=== PATIENT | female | born 1935 | race Caucasian/White ===

== ENCOUNTER → 2016-09-10 | Outpatient (CLI) | payer OTHER, MEDICARE | LOC: BMCIMAGING 08:55 | PROVIDERS: ATTEND Orthopaedic Surgery | DX: Z09 Encounter for follow-up examination after completed treatment for conditions other than malignant neoplasm (principal); Z96.641 Presence of right artificial hip joint ==

== ENCOUNTER → 2016-11-05 | Outpatient (CLI) | payer OTHER, MEDICARE | LOC: BMCIMAGING 16:28 | PROVIDERS: ATTEND Internal Medicine | DX: J18.1 Lobar pneumonia, unspecified organism (principal) ==

== ENCOUNTER → 2016-11-19 | Outpatient (CLI) | payer OTHER, MEDICARE | LOC: BMCIMAGING 15:34 | PROVIDERS: ATTEND Internal Medicine | DX: R91.8 Other nonspecific abnormal finding of lung field (principal) | CPT/HCPCS: G0463-PO ==

== ENCOUNTER → 2017-02-15 | Outpatient (CLI) | payer OTHER, MEDICARE | LOC: BMCIMAGING 09:47 | PROVIDERS: ATTEND Orthopaedic Surgery | DX: Z47.1 Aftercare following joint replacement surgery (principal); Z96.641 Presence of right artificial hip joint ==

== ENCOUNTER → 2017-06-29 | Outpatient (CLI) | payer OTHER, MEDICARE | LOC: BMCIMAGING 14:36 | PROVIDERS: ATTEND Internal Medicine | DX: G50.0 Trigeminal neuralgia (principal) ==

== ENCOUNTER → 2017-09-20 | Outpatient (CLI) | payer OTHER, MEDICARE | LOC: BMCIMAGING 14:03 | PROVIDERS: ATTEND Internal Medicine Rheumatology | DX: Z13.820 Encounter for screening for osteoporosis (principal); M81.0 Age-related osteoporosis without current pathological fracture ==

== ENCOUNTER 2017-12-14 12:26 | Inpatient (IN) | payer OTHER, MEDICARE ==
[2017-12-14] MEDS ORDERED: NS 1,000 ML IV ONE ×2 (13:17→13:42)
--- NOTE | 2017-12-14 13:24 | EDPHY ---
HPI/HX/ROS/PE/MDM Narrative: CHIEF COMPLAINT: Facial pain HPI: This patient is an 82 year old female with recent diagnosis of trigeminal neuralgia. She arrives at the request of her primary care provider, Dr. Heredia, for management of severe right facial pain. This has been intermittent for several months. Last week, the pain became persistent and has worsened considerable over the last 48 hours. Her pain is uncontrolled at home with hydrocodone and Carbamazepine. She has found it difficult to eat or drink due to discomfort. She denies fever or visual changes. She has had a dental workup which was negative. She has not had any imaging studies to date. No chest pain, shortness of breath, abdominal pain, or other associated symptoms. REVIEW OF SYSTEMS: Aside from elements discussed in the HPI, a comprehensive 10-point review of systems was reviewed and is negative. PMH: Polymyositis. Tonsillectomy. Osteoporosis. Fibromyalgia. Hyperlipidemia. Migraines. Right hip surgery. SOCIAL HISTORY: Friend at bedside. Retired. Lives in [place]. PHYSICAL EXAM: General:Patient is alert, in no acute distress. ENT:Eyes are normal to inspection. Severe pain in right mandibular region, patient is holding her face and finds it difficult to speak. Neck: Normal inspection. Full range of motion. Respiratory:No respiratory distress. Breath sounds normal bilaterally. Cardiovascular: Regular rate and rhythm. Strong peripheral pulses. Normal cap refill. Abdomen:The abdomen is nontender to palpation. There are no peritoneal signs. There are normal bowel sounds. Back: Normal to inspection. No tenderness to palpation. Skin: Normal color. No rash. Warm and dry. Extremities: Normal appearance. Full range of motion. Neuro: Oriented x3. Normal motor function. Normal sensory function. ED Course: 82 y/o female presents with uncontrolled pain due to right-sided trigeminal neuralgia. Plan to admit for pain management. The patient's primary care provider concurs with this plan. Plan for labs including CBC, chemistries, troponin, ESR. Plan to administer 0.5mg IV Dilaudid and 1L IV NS for symptom relief. Plan for maxillofacial CT. Reviewed laboratory studies. Evidence of dehydration, hyponatremia. 13:50 Spoke with hospitalist service. Dr. Kaur accepts admission for trigeminal neuralgia, dehydration, hyponatremia. Plan to administer an additional 1L IVF. 14:[address] Gallegos, radiologist. CT maxillofacial bones is negative for acute processes. - Data Points Imaging: Discussed imaging studies w/ call worker Radiologist Laboratory Results: Laboratory Results 12/14/17 13:25 18 13:25 12/14/1718 12/14/17 13:45 13:25 13:25 WBC 7.52 10^3/uL 10^3/uL (3.80-9.50) RBC 4.37 10^6/uL 10^6/uL (4.18-5.33) Hgb 13.4 g/dL g/dL (12.6-16.3) Hct 38.5 % % (38.0-47.0) MCV 88.1 fL fL (81.5-99.8) MCH 30.7 pg pg (27.9-34.1) MCHC 34.8 g/dL g/dL (32.4-36.7) RDW 13.3 % % (11.5-15.2) Plt Count 319 10^3/uL 10^3/uL (150-400) MPV 8.6 fL L fL (8.7-11.7) Neut % (Auto) 66.7 % % (39.3-74.2) Lymph % (Auto) 25.1 % % (15.0-45.0) [place] % (Auto) 6.1 % % (4.5-13.0) Eos % (Auto) 1.3 % % (0.6-7.6) Baso % (Auto) 0.4 % % (0.3-1.7) Nucleat RBC Rel Count 0.0 % % (0.0-0.2) Absolute Neuts (auto) 5.01 10^3/uL 10^3/uL (1.70-6.50) Absolute Lymphs (auto) 1.89 10^3/uL 10^3/uL (1.00-3.00) Absolute Monos (auto) 0.46 10^3/uL 10^3/uL (0.30-0.80) Absolute Eos (auto) 0.10 10^3/uL 10^3/uL (0.03-0.40) Absolute Basos (auto) 0.03 10^3/uL 10^3/uL (0.02-0.10) Absolute Nucleated RBC 0.00 10^3/uL 10^3/uL (0-0.01) Immature Gran % 0.4 % % (0.0-1.1) Immature Gran # 0.03 10^3/uL 10^3/uL (0.00-0.10) ESR 18 MM/HR MM/HR (0-30) Sodium 124 mEq/L L mEq/L (135-145) Potassium 4.5 mEq/L mEq/L (3.3-5.0) Chloride 92 mEq/L L mEq/L (97-110) Carbon Dioxide 24 mEq/l mEq/l (22-31) Anion Gap 8 mEq/L mEq/L (8-16) BUN 11 mg/dL mg/dL (7-23) Creatinine 0.7 mg/dL mg/dL (0.6-1.0) Estimated GFR > 60 Glucose 88 mg/dL mg/dL (70-100) Calcium 8.8 mg/dL mg/dL (8.5-10.4) POC Troponin I 0.00 ng/mL ng/mL (0.00-0.08) Medications Given: Discontinued Medications Hydromorphone HCl (Dilaudid) 0.5 mg IVP EDNOW ONE Stop: 12/14/17 13:45 Last Admin: 12/14/17 13:56 Dose: 0.5 mg Sodium Chloride (Ns) 1,000 mls @ 0 mls/hr IV ONCE ONE PRN Reason: Wide Open Stop: 12/14/17 13:18 Last Admin: 12/14/17 13:33 Dose: 1,000 mls Sodium Chloride (Ns) 1,000 mls @ 0 mls/hr IV EDNOW ONE; Wide Open PRN Reason: Protocol Stop: 12/14/17 13:43 Last Admin: 12/14/17 13:44 Dose: Not Given Point of Care Test Results: Chemistry 12/14/17 13:45 POC Troponin I 0.00 ng/mL ng/mL (0.00-0.08) General Time Seen by Provider: 12/14/17 13:08 Initial Vital Signs: Initial Vital Signs Temperature (C) 36.3 C 12/14/17 12:35 Heart Rate 80 12/14/17 12:35 Respiratory Rate 18 12/14/17 12:35 Blood Pressure 176/87 H 12/14/17 12:35 O2 Sat (%) 96 12/14/17 12:35 O2 Delivery Mode Room Air Allergies/Adverse Reactions: meperidine [Meperidine] Allergy (Intermediate, Verified 12/14/17 12:33) Hives Home Medications: Medication Instructions Recorded Hydrocodone/Acetaminophen [[place] 1 each PO Q4-6PRN PRN 12/14/17 5/325 (*)] carBAMazepine [Tegretol] 200 mg PO BID 12/14/17 traMADol [Ultram 50 mg (*)] 50 mg PO Q8HRS PRN 12/14/17 Departure - Departure Disposition: [facility] Inpatient Acute Clinical Impression: Trigeminal neuralgia of right side of face, Dehydration, Hyponatremia Condition: Fair Report Scribed for: Doug Shahid Report Scribed by: Cecile Mike Date of Report: 12/14/17 Time of Report: 14:24 Physician Review and Approval Statement: Portions of this note were transcribed by an ED scribe. I personally performed the history, physical exam, and medical decision making; and confirm the accuracy of the information in the transcribed note.
[2017-12-14] MEDS ORDERED: HYDROmorphONE/DILAUDID 2 MG/ML INJ IVP ONE (13:44)
[2017-12-14] MEDS ORDERED: HYDROmorphONE/DILAUDID 1 MG/ML INJ ONE (13:49)
[2017-12-14 13:51] LABS: PLATELET COUNT 319 10^3/uL (150-400)
[2017-12-14] MEDS ORDERED: ACETAMINOPHEN 325 MG TAB PO PRN (16:29)
[2017-12-14] MEDS ORDERED: ONDANSETRON 4 MG/2 ML VIAL IVP PRN (16:29)
[2017-12-14] MEDS ORDERED: D5W NS 1,000 ML IV SCH (16:45)
[2017-12-14] MEDS ORDERED: HYDROmorphone HCL 0.5 MG/0.5 ML SYR IVP PRN (16:54)
--- NOTE | 2017-12-14 16:59 | GHP ---
[f rep st] HISTORY AND PHYSICAL DATE OF ADMISSION: 12/14/2017 CHIEF COMPLAINT: Right-sided facial pain. HISTORY OF PRESENT ILLNESS: This is a 82-year-old female who was sent to [facility] Emergency Department by her primary care provider Dr. Barney Heredia due to uncontrolled right-sided fac ial pain. She was diagnosed with trigeminal neuralgia last week and started on Tegretol 200 mg twice daily. Since starting the Tegretol, her pain has persisted. She states that she has not been able to eat for the past 3 days due to severe pain over her right face. The pain is described as sharp an d stabbing, rated 10/10 at its worst. She denies any rashes. She denies any recent trauma. She den ies any fevers or chills. She has been taking some [place] at home, which has not helped either. PAST MEDICAL HISTORY: 1. Osteoporosis. 2. Migraines. 3. Polymyositis. 4. Fibromyalgia. 5. Hypercholesterolemia. 6. Hospitalization in 2016, for right femoral neck fracture, status post ORIF. PAST SURGICAL HISTORY: 1. Tonsillectomy. 2. Eye lens implant. 3. Left quadriceps femoris muscle biopsy. 4. Right hip ORIF. MEDICATIONS: Refer to [facility] for details. ALLERGY: Meperidine. SOCIAL HISTORY: The patient lives in [place] independently. She denies any alcohol, tobacco, or ill icit drug use. FAMILY HISTORY: Reviewed and noncontributory. REVIEW OF SYSTEMS: Comprehensive 10-point review of systems was done and is negative, except for as mentioned in the HPI. PHYSICAL EXAMINATION: VITAL SIGNS: Blood pressure 169/77, pulse 69, respiratory rate 14, O2 saturat ion 97% on room air. Temperature afebrile. GENERAL: In no acute distress. HEAD: Normocephalic, a traumatic. EYES: PERRLA. Sclerae anicteric. MOUTH: Moist mucous membranes. EARS: Tympanic memb ranes intact without any lesions in the external acoustic canals. Face is without lesions or rashes. NECK: Supple. No lymphadenopathy. CARDIOVASCULAR: S1, S2. No JVD. No lower extremity edema. PULMONARY: Lungs are clear. No wheezes, rales, or rhonchi. ABDOMEN: Soft, nontender, nondistended . No guarding or rebound tenderness. Normoactive bowel sounds. EXTREMITIES: No clubbing or cyanos is. NEURO: Cranial nerves 2-12 grossly intact. No focal, motor, or sensory deficits. SKIN: Clear . No rashes. DIAGNOSTIC DATA: WBC 7.5, hemoglobin 13.4, hematocrit 38.5, platelets 319. Sodium 124, potassium 4. 5, chloride 92, BUN 11, creatinine 0.7, glucose 88. CT of the face was negative for structural lesion. There is no osseous erosive changes or soft tissu e masses. Please refer to report for full details. ASSESSMENT/PLAN: 1. This 82-year-old female presenting with intractable right-sided facial pain presumably from trige suzanna neuralgia. Plan: The patient will be placed on observation where we will continue her current dose of Tegretol. Since this started less than a week ago, I did not feel comfortable increasing th e dose. We will add baclofen 5 mg p.o. t.i.d. to see if this helps. May also consider trying topica l lidocaine. If she continues to have pain, would consider Counseling neurology in the morning. 2. Hyponatremia, which is most likely due to poor solute intake per patient history. Plan: The pat jerome received 1 L normal saline in the emergency department. The patient and her family request intr avenous fluids, which does not sound reasonable. We will start D5 normal saline and plan to repeat a sodium later on tonight. If her sodium is falling, would recommend stopping intravenous fluids sinc e intravenous fluids can worsen syndrome of inappropriate antidiuretic hormone secretion. Urine sodi um and osmolality is has been ordered and is currently pending. CODE STATUS: The patient requests to be DNR status. /[id number]/MODL
[2017-12-14] MEDS: oxyCODONE IR 5 MG TAB PO PRN ×2 (17:15→22:21)
[2017-12-14] MEDS: carBAMazepine 200 MG TAB PO SCH (22:20)
[2017-12-14] MEDS: BACLOFEN 10 MG TAB PO SCH (22:20)
[2017-12-15] MEDS: oxyCODONE IR 5 MG TAB PO PRN ×4 (04:19→18:23)
[2017-12-15 05:26] LABS: PLATELET COUNT 298 10^3/uL (150-400)
[2017-12-15] MEDS: BACLOFEN 10 MG TAB PO SCH ×3 (07:51→22:25)
[2017-12-15] MEDS: ENOXAPARIN 40 MG/0.4 ML SYR SC SCH (07:52)
--- NOTE | 2017-12-15 09:29 | ASMTCMCOM ---
CM Note CM Note Notes: 12/15/2017 Case Mangaement Note Pt admitted for pain control r/t trigeminal neuralgia. Met w/pt to discuss d/c needs. Pt lives independently in her own home. She drives and is able to prepare her own meals. P is independent in ADL's. Pt has 2 daughters in the local area; Nilda [phone] and Brandi. There are no identified case management d/c needs. Case Management d/c poc: independent with follow up as directed. Date Signed: 12/15/2017 09:29 AM Electronically Signed By:Ellen Read RN
[2017-12-15] MEDS: carBAMazepine 200 MG TAB PO SCH (09:37)
[2017-12-15] MEDS ORDERED: GABAPENTIN 100 MG CAP PO ONE (09:48)
--- NOTE | 2017-12-15 09:52 | HOSPPROG ---
Hospitalist Progress Note Assessment/Plan: Patient is an 82 y/o woman who was sent to [facility] due to right facial pain. She was recently dx w Trigeminal Neuralgia. Today is my first encounter w the patient, chart reviewed. *right facial pain, recently dx with Trigeminal Neurologia -on carbamazepine bid (in recommended dosing) -baclofen added, trial of gabapentin scheduled tid -pain is out of control today and patient is tearful -spoke with Dr Gordillo and he will see the patient today/ appreciate his involvement *hyponatremia -improved w hydration -possibly from carbamazepine *Plan: patient will require another midnight stay due to pain and needing further imaging today. She is having trouble eating. Will order ensure sAppreciate Dr Gordillo's involvement. Subjective: Sujatha is tearful during my evaluation.Has right sided facial pain. Objective: Vital Signs Temp Pulse Resp BP Pulse Ox 36.4 C 71 16 150/80 H 94 12/15/17 07:47 12/15/17 07:47 12/15/17 07:47 12/15/17 07:47 12/15/17 07:47 Laboratory Results 12/15/17 04:17 12/15/17 04:17 12/14/17 12/15/17 12/16/17 05:59 05:59 05:59 Intake Total 1200 Output Total 1450 Balance -250 - Physical Exam Constitutional: uncomfortable, No not in pain Eyes: PERRL Ears, Nose, Mouth, Throat: hearing normal Cardiovascular: regular rate and rhythym Respiratory: no respiratory distress Gastrointestinal: normoactive bowel sounds Skin: warm Neurologic: AAOx3 Psychiatric: interacting appropriately ICD10 Worksheet Patient Problems: Problems Problem Status Onset Dehydration Acute Hyponatremia Acute Trigeminal neuralgia of right side of face Acute Fracture of femoral neck, right Acute
[2017-12-15] MEDS: GABAPENTIN 300 MG CAP PO SCH ×3 (10:34→22:24)
[2017-12-15] MEDS ORDERED: GADOBUTROL 10 ML VIAL IVP ONE (15:03)
--- NOTE | 2017-12-15 16:33 | NEUROPROG ---
Assessment: [id number] - Neurology Consult: - CC: Facial Pain - HPI: The patient has a history of right sided facial pain diagnosed as trigeminal neuralgia. She reported the right facial pain began in June 2017 but over the last week prior to admission it had worsened to occurring multiple times per day. Pain described as brief severe electrical like pain to the right cheek area. She was on carbamazepine 200 mg bid as an outpatient but her right facial pain was severe so she presented to [facility] on 12/14/17 and was admitted for pain control. I initially saw her on 12/15/17. Her sodium was low which seemed to possibly be related to carbamazepine so I stopped it. I replaced it with gabapentin 300 mg TID to address her suspected trigeminal neuralgia. I also ordered a brain MRI w/ and w/o con and brain MRA to evaluate for the cause of her right facial pain. - PMHx: osteoporosis, migraines, polymyositis, fibromyalgia, HLD, femoral fx and surgery - SHx: lives in [place]x: [place] - ROS: Pt denied acute fever, total vision loss, active severe chest pain, respiratory failure, total body severe rash, total bowel/bladder incontinence, psychosis, active seizures, or active bleeding - O: VS reviewed General: Alert Eyes: Fundoscopic exam not able to visualize optic disks CV: Heart RRR, no murmur, no carotid bruit Lungs: Clear to auscultation bilaterally, no rhonchi or rales Neuro: - Mental: . Oriented x person/place/date . concentration appears normal . speech fluency/comprehension normal . memory appears normal . fund of knowledge appear intact - Cranial Nerves: . II: PERRL, VFFTC . III/IV/: EOMI, no nystagmus, normal smooth pursuits, no Ptosis . V: facial sensation intact to LT . VII: face symmetric to eye closure and smile . VIII: hearing intact to conversation . IX/X: uvula raises symmetrically . XI: SCM 5/5 B/L strength . XII: tongue protrudes midline w/nl strength - Motor: . Tone: normal tone in all 4 extremity . Strength: no pronator drift, strength 5/5 throughout (B/L delt, bic, tri, hand police pilot, hf/he, df/pf) - Reflexes: B/L bic/BR/patella 2/4 - Sensory: all 4 extremity intact to light touch - Coord: [id number] wnl, TEGAN wnl, [id number] wnl - Gait: deferred - Labs: 12/14/17- CBC wnl, ESR 18, Chem Na 124L, Cl 92L - Rads: 12/14/17- Facial CT: unremarkable (I personally visualized the images on 12/15/17) - Assessment: 1. Trigeminal Neuralgia causing right facial pain since June 2017: Normal neurologic exam on 12/15/17. Failed carbamazepine (hyponatremia) - 2. Low Sodium: Possibly from carbamazepine use, I will stop this medication - Plan: - Recommend stopping carbamazepine as it may be causing low sodium - Begin Gabapentin 300 mg TID for trigeminal neuralgia - Brain MRI w/ and w/o con and brain MRA looking for any demyelination or compression of right CN5 to explain her facial pain - F/U with Dr. Jaden Gordillo in 2 weeks in neurology clinic to monitor response to gabapentin Objective: Vital Signs Temp Pulse Resp BP Pulse Ox 37.1 C 75 18 139/70 H 94 12/15/17 16:08 12/15/17 16:08 12/15/17 16:08 12/15/17 16:08 12/15/17 16:08 Laboratory Results 12/15/17 04:17 12/15/17 04:17 12/14/17 12/15/17 12/16/17 05:59 05:59 05:59 Intake Total 1200 400 Output Total 1450 500 Balance -250 -100 Allergies/Adverse Reactions: meperidine [Meperidine] Allergy (Intermediate, Verified 12/14/17 12:33) Luiza
[2017-12-16] MEDS: GABAPENTIN 300 MG CAP PO SCH ×3 (08:00→22:35)
[2017-12-16] MEDS: BACLOFEN 10 MG TAB PO SCH ×3 (08:00→22:35)
[2017-12-16] MEDS: ENOXAPARIN 40 MG/0.4 ML SYR SC SCH (08:00)
--- NOTE | 2017-12-16 09:09 | PDMN ---
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
--- NOTE | 2017-12-16 09:46 | NEUROPROG ---
Assessment: [id number] - Neurology Consult: - CC: F/U for Trigeminal Neuralgia - Narrative Summary: The patient has a history of right sided facial pain diagnosed as trigeminal neuralgia. She reported the right facial pain began in June 2017 but over the last week prior to admission it had worsened to occurring multiple times per day. Pain described as brief severe electrical like pain to the right cheek area. She was on carbamazepine 200 mg bid as an outpatient but her right facial pain was severe so she presented to [facility] on 12/14/17 and was admitted for pain control. I initially saw her on 12/15/17. Her sodium was low which seemed to possibly be related to carbamazepine so I stopped it. I replaced it with gabapentin 300 mg TID to address her suspected trigeminal neuralgia. I also ordered a brain MRI w/ and w/o con and brain MRA to evaluate for the cause of her right facial pain. - HPI: F/U 12/16/17. Brain MRI w/ and w/o con and MRA were both unremarkable (results below, only showed age related changes). No new complaints today. Pain appears to be slowly improving on gabapentin 300 mg TID. - PMHx: osteoporosis, migraines, polymyositis, fibromyalgia, HLD, femoral fx and surgery - SHx: lives in [place] FHx: [place] - ROS: Pt denied acute fever, total vision loss, active severe chest pain, respiratory failure, total body severe rash, total bowel/bladder incontinence, psychosis, active seizures, or active bleeding - Labs: 12/14/17- CBC wnl, ESR 18, Chem Na 124L, Cl 92L - Rads: 12/15/17- Brain MRI w/ and w/o con: mod atrophy, no acute changes, severe CMVD, no enhancing lesions 12/15/17- Brain MRA: Negative MRA of the [place] - Assessment: 1. Trigeminal Neuralgia causing right facial pain since June 2017: Normal neurologic exam on 12/15/17. Brain MRI w/ and w/o con and brain MRA unremarkable on 12/15/17. Failed carbamazepine (hyponatremia) - Plan: - Continue Gabapentin 300 mg TID for trigeminal neuralgia - No further neurologic w/u needed, neurology will sign off - F/U with Dr. Jaden Gordillo in 2 weeks in neurology clinic to monitor response to gabapentin - 35 min spent with patient, majority of time counseling on trigeminal neuralgia and prognosis and treatment options Objective: Vital Signs Temp Pulse Resp BP Pulse Ox 36.5 C 67 14 142/83 H 95 12/16/17 07:26 12/16/17 07:26 12/16/17 07:26 12/16/17 07:26 12/16/17 07:26 Laboratory Results 12/16/17 04:15 12/15/17 12/16/17 12/17/17 05:59 05:59 05:59 Intake Total 550 Balance 550 Allergies/Adverse Reactions: meperidine [Meperidine] Allergy (Intermediate, Verified 12/14/17 12:33) Luiza
[2017-12-16] MEDS: SODIUM CHLORIDE 1,000 MG TAB PO SCH (12:49)
--- NOTE | 2017-12-16 14:22 | HOSPPROG ---
Hospitalist Progress Note Assessment/Plan: Patient is an 82 y/o woman who was sent to [facility] due to right facial pain. She was recently dx w Trigeminal Neuralgia. Today is my first encounter w the patient, chart reviewed. *right facial pain, recently dx with Trigeminal Neurologia -on carbamazepine bid (in recommended dosing) -baclofen added, trial of gabapentin scheduled tid -pain is controlled today and patient is comfortable -appreciate Dr Gordillo *hyponatremia -123 today -start fluid restriction, salt tabs, recheck in am, likely SIADH -possibly from carbamazepine -D/W nephrology *Plan: patient will require another midnight stay due to hyponatremia Subjective: Feeling better. Still dizzy when getting up. No facial pain. Objective: Vital Signs Temp Pulse Resp BP Pulse Ox 36.5 C 67 14 142/83 H 95 12/16/17 07:26 12/16/17 07:26 12/16/17 07:26 12/16/17 07:26 12/16/17 07:26 Laboratory Results 12/16/17 04:15 12/15/17 12/16/17 12/17/17 05:59 05:59 05:59 Intake Total 550 Balance 550 - Physical Exam Constitutional: no apparent distress, appears nourished, not in pain Eyes: PERRL, anicteric sclera, EOMI Ears, Nose, Mouth, Throat: moist mucous membranes, hearing normal, ears appear normal Cardiovascular: No JVD, No tachycardia, No edema Respiratory: no respiratory distress, no rales or rhonchi, clear to auscultation Gastrointestinal: No tenderness, No ascites, No guarding Skin: warm, normal color, No mottled Musculoskeletal: normal joint ROM, no joint effusions, generalized weakness Neurologic: AAOx3 Psychiatric: interacting appropriately, not anxious, not encephalopathic, thought process linear ICD10 Worksheet Patient Problems: Problems Problem Status Onset Fracture of femoral neck, right Acute Trigeminal neuralgia of right side of face Acute Dehydration Acute Hyponatremia Acute
[2017-12-16] MEDS ORDERED: BISACODYL 10 MG SUPP PR PRN (14:38)
[2017-12-16] MEDS ORDERED: LACTULOSE 20 GM/30 ML UDCUP PO PRN (14:38)
[2017-12-16] MEDS ORDERED: MAGNESIUM HYDROXIDE 30 ML UDCUP PO PRN (14:38)
[2017-12-16] MEDS ORDERED: POLYETHYLENE GLYCOL 3350 17 GM PKT PO PRN (14:38)
[2017-12-16] MEDS ORDERED: PREPARATION H 51 GM CRTUBE PR PRN (19:02)
[2017-12-16] MEDS: oxyCODONE IR 5 MG TAB PO PRN (20:09)
[2017-12-16] MEDS: SENNOSIDES/DOCUSATE SODIUM TAB PO SCH (22:35)
[2017-12-17] MEDS: BACLOFEN 10 MG TAB PO SCH ×3 (09:53→21:44)
[2017-12-17] MEDS: GABAPENTIN 300 MG CAP PO SCH ×3 (09:53→21:44)
[2017-12-17] MEDS: ENOXAPARIN 40 MG/0.4 ML SYR SC SCH (09:54)
[2017-12-17] MEDS: SENNOSIDES/DOCUSATE SODIUM TAB PO SCH ×2 (09:55→21:45)
[2017-12-17] MEDS: SODIUM CHLORIDE 1,000 MG TAB PO SCH ×3 (09:55→21:45)
--- NOTE | 2017-12-17 12:53 | HOSPPROG ---
Hospitalist Progress Note Assessment/Plan: Patient is an 82 y/o woman who was sent to [facility] due to right facial pain. She was recently dx w Trigeminal Neuralgia. *right facial pain, recently dx with Trigeminal Neurologia -carbamazepine DC due to hyponatremia -baclofen added, trial of gabapentin scheduled tid -pain is controlled today and patient is comfortable -appreciate Dr Gordillo *hyponatremia -123 today again -strict fluid restriction, salt tabs increased to BID, recheck in am, likely SIADH -possibly from carbamazepine -D/W nephrology *Weakness -multifactorial -PT eval *Constipation -resolved -now with some diarrhea *Plan: patient will require another midnight stay due to hyponatremia Subjective: Feeling tired and dizzy. No pain today. No other issues. Objective: Vital Signs Temp Pulse Resp BP Pulse Ox 36.7 C 75 16 107/53 L 96 12/17/17 07:42 12/17/17 07:42 12/17/17 07:42 12/17/17 07:42 12/17/17 07:42 Laboratory Results 12/17/17 04:30 12/16/17 12/17/17 12/18/17 05:59 05:59 05:59 Intake Total 550 1610 Output Total 1100 Balance 550 510 - Physical Exam Constitutional: no apparent distress, appears nourished Eyes: PERRL, anicteric sclera Ears, Nose, Mouth, Throat: moist mucous membranes, hearing normal Cardiovascular: No JVD, No tachycardia Respiratory: no respiratory distress, no rales or rhonchi Gastrointestinal: No tenderness, No ascites Skin: warm, normal color Musculoskeletal: no joint effusions, generalized weakness Neurologic: AAOx3 Psychiatric: interacting appropriately, not anxious, not encephalopathic ICD10 Worksheet Patient Problems: Problems Problem Status Onset Fracture of femoral neck, right Acute Trigeminal neuralgia of right side of face Acute Dehydration Acute Hyponatremia Acute
--- NOTE | 2017-12-17 14:03 | ASMTCMCOM ---
CM Note CM Note Notes: Pt still not ready for d/c due to hyponatremia. PT rec HHC/SNF today. Chart review demonstrates [facility] past, [facility] has no bed availability at this time. Pt ideally would like to go home with HHC. Left HHC and SNF list with pt and dghtr. CM to folow pt progress for d/c planning. Date Signed: 12/17/2017 02:02 PM Electronically Signed By:EDU Rodgers
[2017-12-18] MEDS: SENNOSIDES/DOCUSATE SODIUM TAB PO SCH (07:22)
[2017-12-18] MEDS: GABAPENTIN 300 MG CAP PO SCH (07:23)
[2017-12-18] MEDS: BACLOFEN 10 MG TAB PO SCH (07:23)
[2017-12-18] MEDS: SODIUM CHLORIDE 1,000 MG TAB PO SCH (07:23)
[2017-12-18] MEDS: ENOXAPARIN 40 MG/0.4 ML SYR SC SCH (07:24)
[2017-12-18 07:40] VITALS: BP 102/55
--- NOTE | 2017-12-18 09:58 | PDIAF ---
- Diagnosis Diagnosis: hyponatremia Code Status: Do Not Resuscitate - Medication Management Discharge Medications: Medications to Continue on Transfer Acetaminophen [Tylenol 325mg (*)] 650 mg PO Q6 PRN tab 12/18/17 [Last Taken Unknown] Baclofen [Baclofen 10 mg (*)] 5 mg PO TID #50 tab 12/18/17 [Last Taken Unknown] Gabapentin [Neurontin 300 MG (*)] 300 mg PO TID #50 cap 12/18/17 [Last Taken Unknown] PE/Shark Liver/Gly/Pet,Wh [Preparation H Cream (*)] 1 kailey GA BID PRN crtube [Last Taken Unknown] Polyethylene Glycol 3350 [Miralax 17 gm (*)] 17 gm PO DAILY PRN pkt 12/18/17 [ Last Taken Unknown] Sennosides/Docusate Sodium [Senokot-S] 1 - 2 tab PO BID tab 12/18/17 [Last Taken Unknown] Sodium Chloride [Salt Tablet] 1,000 mg PO BID #60 tab 12/18/17 [Last Taken Unknown] Discharge Medications: Refer to the Discharge Home Medication list for PRN reason. PICC Care - Routine: N/A - Orders Services needed: Home Care, Registered Nurse, Physical Therapy Home Care Face to Face: I certify that this patient was under my care and that I had the required [id number] encounter meeting the encounter requirements on the discharge day. My findings support the fact that the patient is homebound as defined in Home Care Face to Face Continued: CMS Chapter 7 Medicare Benefits Manual 30.1.1 , The condition of the patient is such that there exists a normal inability to leave home and consequently, leaving home would require a considerable and taxing effort. Diet Recommendation: fluid restriction (use comment for amount) (1000) Additional Instructions: See Dr Heredia this week - Labs/Radiology BMP Date: 12/20/17 - Follow Up Care Current Providers and Referrals: Barney Heredia MD [Primary Care Provider] - As per Instructions Jaden Gordillo DO [Medical Doctor] -
--- NOTE | 2017-12-18 11:42 | GDS ---
[f rep st] DISCHARGE SUMMARY DISCHARGE DIAGNOSES: 1. Trigeminal neuralgia. 2. Hyponatremia. 3. Weakness. 4. Constipation. CONSULTATIONS: Neurology. STUDIES AND PROCEDURES DONE: 1. CT of the face. 2. MRI of the brain. 3. Head MRA. PHYSICAL EXAM: GENERAL: The patient is alert. VITAL SIGNS: Afebrile at 36.8 , pulse 72, respiratory rate 16, blood pressure is 102/55. She is saturating 92 % on room air. I have seen evaluated the patient on the day of discharge. HOSPITAL COURSE: The patient is an 82-year-old female who presented to the emergency room with complaints of right facial pain. She was evaluated and diagnosed with: 1. Trigeminal neuralgia. During this hospitalization, she was started on Tegretol, which had to be discontinued secondary to significant hyponatremia. The patient has responded well to baclofen as well as gabapentin. She will continue these medications in the outpatient setting. She did receive a consultation from Neurology, Dr. Gordillo. He will follow with her outside the hospital for further management. 2. Hyponatremia. This is acute and mildly chronic for the patient. 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 Her Tegretol has been discontinued. She has been initiated on salt tablets and placed on a fluid restriction. She has responded well. Her sodium is 127 today at the time of disposition. She will follow up with Dr. Heredia in the outpatient setting. 3. Weakness. This is significantly improved with elevation of the patient's sodium. 4. Constipation. This has resolved. DISPOSITION: Ms. Waller will be discharged home with home health care. She will have a metabolic panel drawn on 12/20/2017, as well as physical therapy at home. FOLLOWUP: Followup will be with Dr. Heredia, her primary physician, as well as Dr. Gordillo of Neurology. DISCHARGE MEDICATIONS: Please refer to EMR form. I have provided prescriptions for baclofen, Neurontin, salt tablets. I have not adjusted the patient's previously prescribed home medications. I spent greater than 35 minutes in the care, coordination, and management of the patient's disposition. Dictating for Dr Fernández /[id number]/MODL MTDD
--- NOTE | 2017-12-18 16:01 | ASMTLACE ---
MILYE Length of stay for Answers: 2 days current admission Acuity / Level of Answers: Yes Care: Did the patient have an inpatient admission? Comorbidities - select Answers: Other Notes: osteoporosis, migraines , p all that apply olymyositis, fibromyalg ia, hypercholesterolemia # of Emergency department Answers: 1-2 visits in the last 6 months Score: 7 Date Signed: 12/18/2017 04:00 PM Electronically Signed By:Sheila Amor RN
--- NOTE | 2017-12-18 16:13 | ASMTDCNOTE ---
Case Management Discharge Discharge Order Complete? Answers: Yes Patient to Obtain Answers: via Family Medications Transportation Arranged Answers: Family/Friends EMTALA Complete Answers: No Notes: N/A Case Management Transport Answers: No Notes: N/A Form Complete Faxed Final Orders Answers: Yes Notes: C orders sent to [facility] Agency/Facility Transfer Answers: Yes Notes: Sent to [facility] Report Printed & Faxed to Receiving Agency Family Notified Answers: Yes Notes: Dghtr at bedside Discharge Comments Notes: Reviewed chart, spoke with Alma Venegas NP and BENITA Espinoza. Pt to discharge home with home health care today. Met with pt to discuss home care options; list previously provided. Pt open to [facility] ([facility]). Address and phone number verified. Call placed to September with [facility]. Per September, able to accept pt with a start of care for Wednesday12/19/17. Discharge orders faxed to September; confirmed receipt. Update provided to pt - discussed homebound status and potential visit schedule. Pt changed mind and declined home care stating she "did not want to be homebound and did not want more than one visit." Update provided to RN and Alma Venegas. Pt's dghtr in agreement. Pt agrees to follow up with Dr. Heredia on Wednesday12/20/17 for a BMP. IM signed. Update provided to September with [facility]. CM available for any further issues or concerns. Discharge Plan: Home independent with family support Date Signed: 12/18/2017 04:12 PM Electronically Signed By:Sheila Amor RN
--- NOTE | 2017-12-18 16:15 | ASDISCHSUM ---
Discharge Information Plan Status:Home with No Needs Medically Cleared to Leave:12/18/2017 Discharge Date:12/18/2017 01:26 PM CM D/C Disposition:Home, Routine, Self-Care ADT D/C Disposition:Home Health Service Projected Discharge Date:12/18/2017 11:00 AM Transportation at D/C:Family Discharge Delay Reason: Follow-Up Date:12/18/2017 11:00 AM Discharge Slot:2 - 12:01 pm - 18:00 pm Final Diagnosis:Trigeminal neuralgia, hyponatremia, weakness, constipation Placement Information Referral Type:*Home Health Care Services Referral ID:[id number] Provider Name: Address 1: Phone Number: Address 2: Fax Number: City: Selection Factors:Patient/Family Choice State: Patient Contact Information Contact Name:MEGANTEODORA Relationship:Other Address: Work Phone: City: [facility] Phone: State/XGraph Code: Email: Financial Information Financial Class:Medicare Primary Plan Desc:MEDICARE INPATIENT Primary Plan Number:[id number] Secondary Plan Desc:[employer]/MDR SUPPLEMENT Secondary Plan Number:[id number] Assessment Information LACE LACE Length of stay for Answers: 2 days current admission Acuity / Level of Answers: Yes Care: Did the patient have an inpatient admission? Comorbidities - select Answers: Other Notes: osteoporosis, migraines , p all that apply olymyositis, fibromyalg ia, hypercholesterolemia # of Emergency department Answers: 1-2 visits in the last 6 months Score: 7 Date Signed: 12/18/2017 04:00 PM Electronically Signed By:Sheila Amor RN [facility] CM Progress Note CM Note CM Note Notes: 12/15/2017 Case Mangaement Note Pt admitted for pain control r/t trigeminal neuralgia. Met w/pt to discuss d/c needs. Pt lives independently in her own home. She drives and is able to prepare her own meals. P is independent in ADL's. Pt has 2 daughters in the local area; Nilda [phone] and Brandi. There are no identified case management d/c needs. Case Management d/c poc: independent with follow up as directed. Date Signed: 12/15/2017 09:29 AM Electronically Signed By:Ellen Read RN [facility] CM Progress Note CM Note CM Note Notes: Pt still not ready for d/c due to hyponatremia. PT rec HHC/SNF today. Chart review demonstrates pt been to [facility] past, [facility] has no bed availability at this time. Pt ideally would like to go home with HHC. Left HHC and SNF list with pt and dghtr. CM to folow pt progress for d/c planning. Date Signed: 12/17/2017 02:02 PM Electronically Signed By:EDU Rodgers Case Management Discharge Plan Note Case Management Discharge Discharge Order Complete? Answers: Yes Patient to Obtain Answers: via Family Medications Transportation Arranged Answers: Family/Friends EMTALA Complete Answers: No Notes: N/A Case Management Transport Answers: No Notes: N/A Form Complete Faxed Final Orders Answers: Yes Notes: [facility] orders sent to [facility] Agency/Facility Transfer Answers: Yes Notes: Sent to [facility] Report Printed & Faxed to Receiving Agency Family Notified Answers: Yes Notes: Dghtr at bedside Discharge Comments Notes: Reviewed chart, spoke with Alma Venegas NP and BENITA Espinoza. Pt to discharge home with home health care today. Met with pt to discuss home care options; list previously provided. Pt open to [facility] ([facility]). Address and phone number verified. Call placed to September with [facility]. Per September, able to accept pt with a start of care for Wednesday12/19/17. Discharge orders faxed to September; confirmed receipt. Update provided to pt - discussed homebound status and potential visit schedule. Pt changed mind and declined home care stating she "did not want to be homebound and did not want more than one visit." Update provided to RN and Alma Venegas. Pt's dghtr in agreement. Pt agrees to follow up with Dr. Heredia on Wednesday12/20/17 for a BMP. IM signed. Update provided to September with [facility]. CM available for any further issues or concerns. Discharge Plan: Home independent with family support Date Signed: 12/18/2017 04:12 PM Electronically Signed By:Sheila Amor RN Intervention Information Intervention Type:*SHAIKH-Signed Date of Service:12/15/2017 10:04 AM Patient Type:Observation Staff Member:Marija Kohler Hours: Discipline: Severity: Comment: Intervention Type:*IM-Signed Date of Service:12/17/2017 12:25 PM Patient Type:Inpatient Staff Member:Marija Kohler Hours: Discipline: Severity: Comment: Intervention Type:*IM-Signed Date of Service:12/18/2017 04:00 PM Patient Type:Inpatient Staff Member:BENITA Amor Taylor Hours: Discipline: Severity: Comment:
== END 2017-12-18 13:26 | disposition home health service (06) | DRG 74 ==
LOC: F3N 15:31 → OBSVTOIN 12-15 17:25
PROVIDERS: ADMIT Family Medicine; ATTEND Family Medicine
DX: G50.0 Trigeminal neuralgia (principal); E87.1 Hypo-osmolality and hyponatremia; K59.00 Constipation, unspecified; E86.0 Dehydration; M81.0 Age-related osteoporosis without current pathological fracture; G43.909 Migraine, unspecified, not intractable, without status migrainosus; Z66 Do not resuscitate
CPT/HCPCS: 84484-PO; 96374; 97161-GP; A9585; G0378; G8978-GP-CJ; G8979-GP-CI; J1170; J1650; J2405

== ENCOUNTER 2017-12-29 09:55 | Inpatient (IN) | payer OTHER, MEDICARE ==
--- NOTE | 2017-12-29 11:00 | EDPHY ---
H & P Time Seen by Provider: 12/29/17 10:16 HPI/ROS: CHIEF COMPLAINT: Lower leg redness and swelling HISTORY OF PRESENT ILLNESS: Patient presents with bilateral lower leg redness and swelling for at least the last 2 days. She was placed on gabapentin recently for trigeminal neuralgia but she has been off of it for 48 hr. She presents with bilateral leg swelling which is associated with redness and pain but not fever or chills. Symptoms are severe and affecting her ability to walk or ambulate. She also has severely decreased oral intake because of her trigeminal neuralgia. Leg redness not associated with recent injury. No chest pain or shortness of breath. REVIEW OF SYSTEMS: Eye: no change in vision ENT: no sore throat, patient has had persistent right facial pain from her trigeminal neuralgia per venting her from eating or drinking normally. Cardiac: no chest pain or syncope Pulmonary: no cough or SOB Abdomen: no vomiting, diarrhea, abdominal pain Musculoskeletal: no back pain Skin: Bilateral leg redness and swelling Neuro: no headache Constitutional: no fever : no urinary symptoms A comprehensive 10 point review of systems is otherwise negative aside from elements mentioned in the history of present illness. PAST MEDICAL HISTORY: Includes polymyositis and trigeminal neuralgia, tonsillectomy, fibromyalgia, right hip surgery, migraine headaches Social history: Here with both daughters General Appearance: Alert and conversant, cooperative. Eyes: No scleral icterus. ENT, Mouth: Normal mucous membranes. No trismus. Respiratory: Normal respiratory effort, breath sounds equal, lungs are clear to auscultation. Cardiovascular: Regular rate and rhythm. Gastrointestinal: Abdomen is soft and non tender. Neurological: Alert, face symmetric, normal motor and sensory in extremities. Skin: Bilateral lower extremity redness especially on the anterior shins. It is warm to touch but no lymphangitis. There is a 1.5 cm darker area on the medial left lower leg near the ankle, no crepitus and no eschar. Musculoskeletal: Bilateral lower extremity edema and swelling Psychiatric: Not agitated. Emergency Department course/MDM: Dilaudid 0.5 mg IV for pain, lower extremity redness and swelling appears clinically like cellulitis. Left leg x-ray and CRP to evaluate for air in soft tissue, fasciitis markers. Bilateral leg ultrasound. IV Ancef 2 g and admission for IV fluids as having difficulty eating and drinking and further evaluation. Fasciitis considered, I think it is unlikely; LRINEC score of 1. Does not have SIRS criteria on admission. Smoking Status: Never smoked Constitutional: Initial Vital Signs Temperature (C) 36.8 C 12/29/17 10:00 Heart Rate 79 12/29/17 10:00 Respiratory Rate 18 12/29/17 10:00 Blood Pressure 146/73 H 12/29/17 10:00 O2 Sat (%) 95 12/29/17 10:00 O2 Delivery Mode Room Air Allergies/Adverse Reactions: meperidine [Meperidine] Allergy (Intermediate, Verified 12/29/17 10:04) Hives Home Medications: Medication Instructions Recorded Acetaminophen [Tylenol 325mg (*)] 650 mg PO Q6 PRN tab 12/18/17 Polyethylene Glycol 3350 [Miralax 17 gm PO DAILY PRN pkt 12/18/17 17 gm (*)] Sennosides/Docusate Sodium 1 - 2 tab PO BID tab 12/18/17 [Senokot-S] SUMAtriptan [Imitrex 25 MG (*)] 25 mg PO Q2H 12/29/17 traMADol HCL [Tramadol HCl] 50 mg PO Q4 PRN 12/29/17 Medical Decision Making - Diagnostics Imaging Results: Imaging Impressions Extremity Venous Study 12/29/17 11:17 Impression: Calf edema. No deep vein thrombosis in either lower extremity. Results communicated to JC VEGA, at 12/29/2017 12:15 Tibia/Fibula X-Ray 12/29/17 11:17 Impression: 1. Soft tissue swelling 2. No underlying bone abnormality identified 3. Knee chondrocalcinosis 4. Atherosclerosis Imaging: Discussed imaging studies w/ pasteuriser operator Radiologist Differential Diagnosis: Leg differential considered including but not limited to cellulitis, fasciitis, DVT, compartment syndrome, drug reaction. Consult/Admit Bed Type: [place] [id number] for [place] - Data Points Laboratory Results: Laboratory Results 12/29/17 11:05 12/29/17 11:05 12/29/17 12/29/17 12/29/17 11:05 11:05 11:05 WBC 7.22 10^3/uL 10^3/uL (3.80-9.50) RBC 3.91 10^6/uL L 10^6/uL (4.18-5.33) Hgb 12.0 g/dL L g/dL (12.6-16.3) Hct 36.9 % L % (38.0-47.0) MCV 94.4 fL fL (81.5-99.8) MCH 30.7 pg pg (27.9-34.1) MCHC 32.5 g/dL g/dL (32.4-36.7) RDW 14.0 % % (11.5-15.2) Plt Count 292 10^3/uL 10^3/uL (150-400) MPV 8.7 fL fL (8.7-11.7) Neut % (Auto) 65.9 % % (39.3-74.2) Lymph % (Auto) 24.4 % % (15.0-45.0) [place] % (Auto) 7.2 % % (4.5-13.0) Eos % (Auto) 1.4 % % (0.6-7.6) Baso % (Auto) 0.7 % % (0.3-1.7) Nucleat RBC Rel Count 0.0 % % (0.0-0.2) Absolute Neuts (auto) 4.76 10^3/uL 10^3/uL (1.70-6.50) Absolute Lymphs (auto) 1.76 10^3/uL 10^3/uL (1.00-3.00) Absolute Monos (auto) 0.52 10^3/uL 10^3/uL (0.30-0.80) Absolute Eos (auto) 0.10 10^3/uL 10^3/uL (0.03-0.40) Absolute Basos (auto) 0.05 10^3/uL 10^3/uL (0.02-0.10) Absolute Nucleated RBC 0.00 10^3/uL 10^3/uL (0-0.01) Immature Gran % 0.4 % % (0.0-1.1) Immature Gran # 0.03 10^3/uL 10^3/uL (0.00-0.10) PT 13.4 SEC SEC (12.0-15.0) INR 1.00 (0.83-1.16) APTT 27.5 SEC SEC (23.0-38.0) Sodium 136 mEq/L mEq/L (135-145) Potassium 4.4 mEq/L mEq/L (3.3-5.0) Chloride 109 mEq/L mEq/L (97-110) Carbon Dioxide 22 mEq/l mEq/l (22-31) Anion Gap 5 mEq/L L mEq/L (8-16) BUN 18 mg/dL mg/dL (7-23) Creatinine 0.8 mg/dL mg/dL (0.6-1.0) Estimated GFR > 60 Glucose 72 mg/dL mg/dL (70-100) Calcium 8.8 mg/dL mg/dL (8.5-10.4) Total Bilirubin 0.8 mg/dL mg/dL (0.1-1.4) C-Reactive Protein 12.9 mg/L H mg/L (<10.0) Medications Given: Discontinued Medications Hydromorphone HCl (Dilaudid) 0.5 mg IVP EDNOW ONE Stop: 12/29/17 11:18 Last Admin: 12/29/17 11:34 Dose: 0.5 mg Cefazolin Sodium/Dextrose (Ancef 2 Gm) 100 mls @ 200 mls/hr IV EDNOW ONE PRN Reason: Protocol Stop: 12/29/17 11:46 Last Admin: 12/29/17 12:31 Dose: 100 mls Sodium Chloride (Ns) 1,600 mls @ 3,200 mls/hr 30 ml/kg infuse over 30 min ( 1600 ml) IV EDNOW ONE PRN Reason: Protocol Stop: 12/29/17 11:45 Last Admin: 12/29/17 11:35 Dose: 1,600 mls Departure - Departure Disposition: [facility] Acute Clinical Impression: Bilateral cellulitis of lower leg, Trigeminal neuralgia of right side of face Condition: Good
[2017-12-29] MEDS ORDERED: NS 1,600 ML IV ONE (11:16)
[2017-12-29] MEDS ORDERED: ceFAZolin 2 GM/DEXTROSE 100 ML IV ONE (11:17)
[2017-12-29] MEDS ORDERED: HYDROmorphONE/DILAUDID 2 MG/ML INJ IVP ONE (11:17)
[2017-12-29 11:31] LABS: PROTIME(PATIENT) 13.4 SEC (12.0-15.0)
[2017-12-29 11:37] LABS: PLATELET COUNT 292 10^3/uL (150-400)
--- NOTE | 2017-12-29 12:33 | ASMTCMCOM ---
CM Note CM Note Notes: Chart reviewed upon admission from the ER. See ER report for details as well as CM notes from recent IP discharge on 12/18/17. Patient lives independently with support from her 2 daughters who live locally. SNF/HH recommended and declined by patient at that time. CM to follow and available PRN for discharge planning Date Signed: 12/29/2017 12:32 PM Electronically Signed By:Amy Chase RN
--- NOTE | 2017-12-29 12:35 | ASMTLACE ---
JENIFFER Acuity / Level of Answers: Yes Care: Did the patient have an inpatient admission? Comorbidities - select Answers: Other Notes: trigeminal neuralgia all that apply # of Emergency department Answers: 1-2 visits in the last 6 months Score: 5 Date Signed: 12/29/2017 12:35 PM Electronically Signed By:Amy Chase RN
[2017-12-29] MEDS ORDERED: HYDROCODONE/APAP 5/325 TAB PO PRN ×2 (13:06→14:03)
[2017-12-29] MEDS ORDERED: ACETAMINOPHEN 325 MG TAB PO PRN (13:06)
[2017-12-29] MEDS ORDERED: ONDANSETRON DISINTEGRATING 4 MG TAB PO PRN (13:06)
[2017-12-29] MEDS ORDERED: ONDANSETRON 4 MG/2 ML VIAL IVP PRN (13:06)
[2017-12-29] MEDS ORDERED: SUMAtriptan 25 MG TAB PO PRN (14:04)
[2017-12-29] MEDS ORDERED: POLYETHYLENE GLYCOL 3350 17 GM PKT PO PRN (14:04)
[2017-12-29] MEDS ORDERED: HYDROCODONE/APAP 5/325 TAB ONE (14:20)
[2017-12-29] MEDS: CARBAMAZEPINE 100 MG CHEWABLE TAB PO SCH ×2 (15:13→20:06)
--- NOTE | 2017-12-29 15:30 | PDGENHP ---
History and Physical - Chief Complaint LE edema, facial pain - History of Present Illness 82 yo female with h/o trigeminal neuralgia, recently admitted for pain control, presents to ED with b/l LE swelling. She was initially treated with Tegretol for TN, but did not have great pain control and required hydrocodone for breakthrough pain. During her recent hospitalization, she was transitioned to Gabapentin and Baclofen. She then began to develop LE edema. After hospital discharge, her edema worsened and she saw her PCP, who advised her to stop the Gabapentin as this can cause LE edema. Her last dose of Gabapentin was 2 days prior to arrival. At that time, her b/l LE's were quite swollen and red. Today , the redness has subsided a bit and has become more of a darker discoloration, but the swelling persists. This is causing discomfort and difficulty with ambulation. No fevers/chills. No CP or SOB. She is having increased facial pain since stopping the gabapentin, which she has managed with hydrocodone. In the ED, xray is negative for gas in the soft tissues. LE u/s is negative for DVT. Blood cultures are drawn due to concern for cellulitis. She was given 1 g of Ancef and is admitted to the hospital for further management. History Information - Allergies/Home Medication List Allergies/Adverse Reactions: meperidine [Meperidine] Allergy (Intermediate, Verified 12/29/17 10:04) Hives Home Medications: SUMAtriptan [Imitrex 25 MG (*)] 25 mg PO Q2H 12/29/17 [Last Taken Unknown] traMADol HCL [Tramadol HCl] 50 mg PO Q4 PRN 12/29/17 [Last Taken 12/28/17] I have personally reviewed and updated: family history, medical history, social history, surgical history - Past Medical History fibromyalgia Additional medical history: polymyositis. hyperlipidemia. osteoporosis. trigeminal neuralgia. LE edema. hyponatremia - Surgical History Additional surgical history: tonsillectomy. right femoral neck fracture s/p ORIF. eye lens implant - Family History Positive for: non-pertinent - Social History Smoking Status: Never smoked Alcohol Use: None Drug Use: None Additional social history: Lives independently. Discharge from hospital 11/2017 with home health. Review of Systems Review of Systems: ROS: 10pt was reviewed & negative except for what was stated in HPI & below Physical Exam Physical Exam: Temp Pulse Resp BP Pulse Ox 35.9 C L 71 16 170/78 H 97 12/29/17 13:16 12/29/17 13:16 12/29/17 13:16 12/29/17 13:16 12/29/17 13:16 Constitutional: no apparent distress Eyes: PERRL Ears, Nose, Mouth, Throat: moist mucous membranes Cardiovascular: regular rate and rhythym Respiratory: no respiratory distress, clear to auscultation Gastrointestinal: normoactive bowel sounds, soft, non-tender abdomen Skin: warm Musculoskeletal: full muscle strength, other (b/l 1-2+ LE pitting edema with brawny discoloration, no warmth and no drainage) Neurologic: AAOx3 Psychiatric: interacting appropriately Lab Data & Imaging Review 12/29/17 11:05 12/29/17 11:05 WBC 7.22 10^3/uL (3.80-9.50) 12/29/17 11:05 RBC 3.91 10^6/uL (4.18-5.33) L 12/29/17 11:05 Hgb 12.0 g/dL (12.6-16.3) L 12/29/17 11:05 Hct 36.9 % (38.0-47.0) L 12/29/17 11:05 MCV 94.4 fL (81.5-99.8) 12/29/17 11:05 MCH 30.7 pg (27.9-34.1) 12/29/17 11:05 MCHC 32.5 g/dL (32.4-36.7) 12/29/17 11:05 RDW 14.0 % (11.5-15.2) 12/29/17 11:05 Plt Count 292 10^3/uL (150-400) 12/29/17 11:05 MPV 8.7 fL (8.7-11.7) 12/29/17 11:05 Neut % (Auto) 65.9 % (39.3-74.2) 12/29/17 11:05 Lymph % (Auto) 24.4 % (15.0-45.0) 12/29/17 11:05 [place] % (Auto) 7.2 % (4.5-13.0) 12/29/17 11:05 Eos % (Auto) 1.4 % (0.6-7.6) 12/29/17 11:05 Baso % (Auto) 0.7 % (0.3-1.7) 12/29/17 11:05 Nucleat RBC Rel Count 0.0 % (0.0-0.2) 12/29/17 11:05 Absolute Neuts (auto) 4.76 10^3/uL (1.70-6.50) 12/29/17 11:05 Absolute Lymphs (auto) 1.76 10^3/uL (1.00-3.00) 12/29/17 11:05 Absolute Monos (auto) 0.52 10^3/uL (0.30-0.80) 12/29/17 11:05 Absolute Eos (auto) 0.10 10^3/uL (0.03-0.40) 12/29/17 11:05 Absolute Basos (auto) 0.05 10^3/uL (0.02-0.10) 12/29/17 11:05 Absolute Nucleated RBC 0.00 10^3/uL (0-0.01) 12/29/17 11:05 Immature Gran % 0.4 % (0.0-1.1) 12/29/17 11:05 Immature Gran # 0.03 10^3/uL (0.00-0.10) 12/29/17 11:05 PT 13.4 SEC (12.0-15.0) 12/29/17 11:05 INR 1.00 (0.83-1.16) 12/29/17 11:05 APTT 27.5 SEC (23.0-38.0) 12/29/17 11:05 VBG Lactic Acid 1.2 mmol/L (0.7-2.1) 12/29/17 13:20 Sodium 136 mEq/L (135-145) 12/29/17 11:05 Potassium 4.4 mEq/L (3.3-5.0) 12/29/17 11:05 Chloride 109 mEq/L (97-110) 12/29/17 11:05 Carbon Dioxide 22 mEq/l (22-31) 12/29/17 11:05 Anion Gap 5 mEq/L (8-16) L 12/29/17 11:05 BUN 18 mg/dL (7-23) 12/29/17 11:05 Creatinine 0.8 mg/dL (0.6-1.0) 12/29/17 11:05 Estimated GFR > 60 12/29/17 11:05 Glucose 72 mg/dL (70-100) 12/29/17 11:05 Calcium 8.8 mg/dL (8.5-10.4) 12/29/17 11:05 Total Bilirubin 0.8 mg/dL (0.1-1.4) 12/29/17 11:05 C-Reactive Protein 12.9 mg/L (<10.0) H 12/29/17 11:05 Procalcitonin 0.09 ng/mL (0.02-0.10) 12/29/17 13:40 Assessment & Plan Assessment: B/L LE edema - Suspect side effect from Gabapentin rather than bilateral cellulitis, which would be unusual. She is afebrile, nl wbc's, nl lactate, negative procalcitonin, and no warmth. -defer atbx as I doubt this is a bacterial process -elevate legs, compression stockings -d/c gabapentin -PT/OT Trigeminal neuralgia - gabapentin d/c'd due to above. Lyrica can apparently have similar side effect. Even Baclofen can cause edema and she was recently taking this as well so hard to say which drug is causative, but suspect gabapentin. -resume tegretol and up-titrate by 200 mg a day for pain control -prn norco for pain Fibromyalgia Polymyositis Full code Dispo - inpt, anticipate >48 hrs hospitalization for acute pain management and PT/OT
[2017-12-29] MEDS: SENNOSIDES/DOCUSATE SODIUM TAB PO SCH (20:06)
[2017-12-30 07:29] VITALS: BP 134/80
[2017-12-30] MEDS: SENNOSIDES/DOCUSATE SODIUM TAB PO SCH (08:58)
[2017-12-30] MEDS: CARBAMAZEPINE 100 MG CHEWABLE TAB PO SCH (08:58)
[2017-12-30] MEDS ORDERED: ENOXAPARIN 40 MG/0.4 ML SYR SC SCH (09:00)
--- NOTE | 2017-12-30 10:45 | ASMTCMCOM ---
CM Note CM Note Notes: Pt just d/c from [facility] 12/18 at that time therapies recommended HHC/SNF and pt declined both. PT rec home today. Spoke with pt who wants to return home and reports no needs. Pt states the reason she came in this time "had nothing to do with not having home care." Pt has local family support. Pt medically stable for d/c, no CM d/c needs identified. Date Signed: 12/30/2017 10:44 AM Electronically Signed By:EDU Rodgers
--- NOTE | 2017-12-31 08:39 | GDS ---
[f rep st] DISCHARGE SUMMARY DISCHARGE DIAGNOSES: 1. Trigeminal neuralgia. 2. Lower extremity edema, likely secondary to gabapentin side effect. 3. Fibromyalgia. 4. History of polymyositis. HISTORY: For details, please see dictated history and physical dated December 29, 2017. In brief, the pa osvaldo is an 82-year-old female with a history of trigeminal neuralgia who was recently admitted to [facility] for pain control and was started on gabapentin and baclofen. In the outpatient setting, s he developed significant lower extremity edema. Her primary care doctor recommended she discontinue the gabapentin. She then had increased pain from her trigeminal neuralgia and presented to the emerg ency department. She was admitted to the hospital for further management. HOSPITAL COURSE: The patient was admitted to the Med/Surg Unit. There was initially concern for daniel ateral lower extremity cellulitis and blood cultures were drawn. She was given IV Ancef in the emerg ency department. Upon my evaluation, I am more suspicious for side effects from the gabapentin rathe r than bilateral cellulitis, which would be unusual. Furthermore, she was afebrile. She had a nikki l white blood cell count, normal lactate, negative procalcitonin. There was no warmth to her edema i n the lower extremities. In addition, she reported that the redness had actually improved over the 2 days since her last dose of gabapentin. Her lower extremity edema was treated with elevation and co mpression stockings. The following morning, there was significant improvement. Currently, there was no increased redness or warmth to suggest a bacterial process. Regarding her pain from trigeminal neuralgia, gabapentin was obviously discontinued due to above. I also elected not to continue baclofen, as this can also cause edema. Lyrica was also deferred due to the risk for similar side effects. She was started on Tegretol 100 mg twice daily and given p.r.n. Escalon for pain. The following day, she made a much more rapid recovery than anticipated. Her edema had improved. She was able to ambulate. Her pain was controlled. She wished to discharge home, ack nowledging this was a faster recovery than anticipated. DISPOSITION: The patient is discharged home in stable condition. FOLLOWUP: Dr. Barney Alas, primary care. DISCHARGE MEDICATIONS: Please see Payoff completed outpatient medication list. New medications on discharge include Tegretol 100 mg p.o. b.i.d., #60, no refills; Escalon 5/325, 0.5 to 1 tablet p.o. q. 6 hours p.r.n., #20, no refills. She will continue her p.r.n. Imitrex, Senokot and p.r.n. MiraLAX, a s previously prescribed. In addition, I recommend she continue to elevate her legs and use compressi on stockings. /[id number]/MODL
== END 2017-12-30 11:17 | disposition home or self-care (01) | DRG 948 ==
LOC: F3N 12:53
PROVIDERS: ADMIT Hospitalist; ATTEND Hospitalist
DX: R60.0 Localized edema (principal); T42.6X5A Adverse effect of other antiepileptic and sedative-hypnotic drugs, initial encounter; G50.0 Trigeminal neuralgia; M79.7 Fibromyalgia
CPT/HCPCS: 96365; 97161-GP; 97165-GO; G8978-GP-CI; G8979-GP-CI; G8980-GP-CI; G8987-GO-CI; G8988-GO-CI; G8989-GO-CI; J0690; J1170; J1650

== ENCOUNTER → 2018-11-16 | Outpatient (CLI) | payer OTHER, MEDICARE | LOC: BMCIMAGING 09:43 | PROVIDERS: ATTEND Internal Medicine Rheumatology | DX: M16.12 Unilateral primary osteoarthritis, left hip (principal); M85.9 Disorder of bone density and structure, unspecified; I70.90 Unspecified atherosclerosis; Z87.81 Personal history of (healed) traumatic fracture; Z96.641 Presence of right artificial hip joint ==